=== PATIENT | female | born 1995 | race Caucasian/White ===

== ENCOUNTER 2016-09-13 07:19 | Inpatient (IN) | payer MEDICAID ==
[2016-09-13 07:40] VITALS: BMI 28.5
[2016-09-13] MEDS ORDERED: Oxycodone/Acetaminophen 5/325 mg Tab PO PRN ×2 (07:40)
[2016-09-13 09:09] VITALS: RESP 18; O2SAT 100
[2016-09-13 09:22] LABS: BASO # 0.1 K/uL (0.0-0.2); BASO % 0.6 % (0.0-2.0); EOS # 0.2 K/uL (0.0-0.7); EOS % 1.1 % (0.0-4.0); HEMOGLOBIN 10.6 g/dL (12.0-16.0); LYMPH # 2.6 K/uL (1.0-4.3); LYMPH % 18.7 % (20.0-40.0); MEAN CELL VOLUME 73.5 fl (81.0-99.0); MEAN CORPUSCULAR HEMOGLOBIN 22.8 pg (27.0-31.0); MEAN PLATELET VOLUME 10.3 fl (7.2-11.7); MONO # 1.2 K/uL (0.0-0.8); NEUT # 9.8 K/uL (1.8-7.0); NEUT % 70.6 % (50.0-75.0); NRBC % 0.1 % (0.0-0.0); RBC 4.67 Mil/uL (3.80-5.20); RED CELL DISTRIBUTION WIDTH 15.7 % (11.5-14.5); WHITE BLOOD COUNT 13.9 K/uL (4.8-10.8)
--- NOTE | 2016-09-13 09:23 | OBHP ---
Datetime: 09/13/2016 08:34 IP Chief Complaint Other: home term-delivery at 645AM IP Adm Impression Other: care IP Admit Plan: Admit to unit Admit Comment, IP Provider: A 21 y/o F comes to hospital for care after deliverin g term baby at home this morning 645am. pt states she was taking baby asprin at home b/c she has hist ory of Hemartoma and miscarriages in past. GBS+, no hx of DM. pt denies n/v/d OBGYN: Meds: ASA. PNV PMH: uterine hematoma and 2 miscarriages PSH: D_C SH: denies alcohol, smoking FH: not pertinent A: A 21 y/o F comes to hospital for care after delivering term baby at home this m orning 645am P: Admit to L_D care will f/u with her records third trimester labs ordered start Pitocin discussed with Attending Sekou Sagastume, PGY-1 OB Hospitalist note: This pt was seen and examined by me. Agree with above note. MAHNDO Prep for exam and placenta delivery (DX retained placenta/second degree ;laceatoin repair) Extremities - PN: Normal Lungs - PN: Normal Heart - PN: Normal Neurologic - PN: Normal General - PN: Normal Comments, ACOG Physical Exam: In NAD Accompanied by her and two EMT ([facility] [employer] men) Just concenred about her baby
[2016-09-14 05:59] LABS: MEAN CELL VOLUME 73.8 fl (81.0-99.0); MEAN CORPUSCULAR HEMOGLOBIN 22.8 pg (27.0-31.0); MEAN CORPUSCULAR HGB CONC 30.9 g/dL (33.0-37.0); RBC 4.37 Mil/uL (3.80-5.20); RED CELL DISTRIBUTION WIDTH 15.5 % (11.5-14.5); WHITE BLOOD COUNT 13.8 K/uL (4.8-10.8)
[2016-09-14] MEDS ORDERED: Benzocaine/Menthol SPRAY TOP PRN (08:32)
[2016-09-14] MEDS: Hydrocortisone-Pramoxine 1%-1% Foam(10 gm) TOP SCH ×3 (08:52→18:41)
--- NOTE | 2016-09-15 08:18 | OBPPN ---
Datetime: 09/15/2016 07:04 PP Pain Prov: Within normal limits PP Nausea Prov: Denies PP Flatus Prov: Yes PP BM Prov: No PP Breasts Prov: Not Done PP Heart Prov: Normal PP Lungs Prov: Normal PP Abdomen/Uterus Prov: Normal PP Lochia Prov: Normal PP Vulva/Perineum Prov: Normal PP CVA Tenderness Prov: Not Done PP Extremities Prov: Normal PP C/S Incision Prov: Not Applicable PP Progress Prov: Normal PP Impression Prov: Normal progression PP Plan Prov: Continue present management; Discharge PP Progress Note Prov: This is a 21 YO who had a at home on 09/13/16 @ 6:30. Patient was b rought in to the hospital for PP care. Baby is in NICU, meconium stained fluid and was initially cyan otic and apneic at . Pt seen and examined at bedside. No changes overnight. Pt reports minimal a bdominal pain but controlled with pain medications. Tolerating diet. Lochia is similar to menses volu me. Voiding freely with no blood noted. Denies n/v, fever, chills, chest pain, dyspnea, dizziness. PE: VS stable Gen: patient is fatigue, NAD CV: S1S2 no murmurs PUL: clear breath sounds b/l, no wheezing Abdomen: BS+, - tenderness Ext: no pedal edema, NT A/P 21 YO who had a NVD at home on 09/13/16 @ 6:30. Patient remains afebrile, tolerating pain wi th pain medications, tolerating liquid, doing well. Motrin for pain patient is encouraged to breastfeed and ambulate care will continue d/c to home today Given instructions for follow up with PCP in 6 weeks and 2 weeks for baby Chelsea Yoon, PGY-I OB Hospitalist Addendum: Pt seen and examined by me. Agree w/ above. PPD2 s/p at home, doing well, breast and bottle feeding. Discharge home today. (ES) Vital Signs Provider PP: Reviewed
--- NOTE | 2016-09-15 08:21 | OBDCSUM ---
Datetime: 09/15/2016 07:13 Discharged to, Provider: Home Follow up at, Provider: PCP Disch Instr Activity: Normal activity; May be up to bathroom; May be up for meals; May Shower Disch Instr Diet: Regular Discharge Instructions, Provider: Routine instructions given Discharge Diagnosis, Provider: Term Delivered Discharge Time: 09/15/2016 11:05 Follow up in weeks, Provider: 6 weeks Disch Activity Restrictions: No lifting; No driving; No sexual activity; Nothing in vagina - Interco urse, tampons, douche Discharge Comment, Provider: 21 YO who underwent a NVD at home. Baby was cyanotic at a nd was admitted to NICU. Baby is doing well now. Gave to baby boy on 09/13/16. Pt had an umcompli cated and an no complications during . DISCHARGE INSTRUCTIONS: 1. Encourage 2. PNV 1 tab po q/day 3. Ibuprofen 600 mg 1 tab po prn q6 if moderate pain. 4. Ambulatory with caution, nothing per vagina, no heavy lifting, avoid stairs, if excessive bleed ing or fever without relief from Tylenol go to ED 5. F/U with private doctor in 6 weeks, and 2 wks for baby Contraception after Delivery: Undecided
[2016-09-15 19:08] VITALS: BP 110/67; PULSE 72; TEMP 97.8
== END 2016-09-15 14:55 | disposition home or self-care (01) | DRG 373 ==
LOC: H.EROB2 07:19 → H.L&D 07:33 → H.OB/GYN 10:00
PROVIDERS: ADMIT Obstetrics & Gynecology Gynecology; ATTEND Obstetrics & Gynecology Gynecology
PROC: 0KQM0ZZ Repair Perineum Muscle, Open Approach (ICD-10-PCS; principal; 2016-09-13)
PROC: 10E0XZZ Delivery of Products of Conception, External Approach (ICD-10-PCS; 2016-09-13)
PROC: 4A1HXCZ Monitoring of Products of Conception, Cardiac Rate, External Approach (ICD-10-PCS; 2016-09-13)
DX: O70.1 Second degree perineal laceration during delivery (principal); Z37.0 Single live birth; Z3A.39 39 weeks gestation of pregnancy